=== PATIENT | male | born 1955 | race Caucasian/White ===

== ENCOUNTER → 2017-05-02 | Outpatient (CLI) | payer MEDICARE ==
[~2017-05-02] MED LIST: BENICAR40 MG PO; CARDIZEM CD,CA300 MG PO; CARDIZEM120 MG PO; CLONAZEPAM PO; CLONAZEPAM1 MG PO; COMBIVENT RESPIM4 GM IH; DIVALPROEX SOD500 M1 PO; LEVOFLOXACIN750 MG PO; LOW DOSE ASPIRI81 M1 PO; LYRICA PO; MOTRIN600 MG PO; ROXICODONE5 MG PO; SERTRALINE HCL50 MG PO; SUMATRIPTAN SU100 MG PO; TROKENDI XR50 MG PO; VENLAFAXINE HCL50 MG PO; XARELTO20 MG PO
== END | disposition home or self-care (01) ==
LOC: CDC 15:24
DX: Z01.810 Encounter for preprocedural cardiovascular examination (principal); K40.20 Bilateral inguinal hernia, without obstruction or gangrene, not specified as recurrent; R94.31 Abnormal electrocardiogram [ECG] [EKG]
CPT/HCPCS: 93000

== ENCOUNTER 2017-08-05 19:50 | Emergency (ER) | payer OTHER ==
[~2017-08-05] VITALS: Ht 182.9 cm; Wt 84.1 kg
[~2017-08-05 19:50] MED LIST changes: +ALEVE220 M2 PO; +ANORO ELLIPTA1 EACH IH; +PRILOSEC20 MG PO; +VENTOLIN HFA18 GM IH
[2017-08-05 20:55] LABS: HEMATOCRIT 47.1 % (38.0-50.0); HEMOGLOBIN 16.5 G/DL (12.5-16.6); MCV 91.3 FL (86-99); PLATELET COUNT 232 K/uL (156-360); RBC DIS.WIDTH-SD 43.8 % (39-53); RED BLOOD COUNT 5.16 M/uL (4.00-5.50); WHITE BLOOD COUNT 12.3 K/uL (4.1-10.2)
[2017-08-05 21:19] LABS: CHLORIDE 101 mEq/L (99-109); POTASSIUM 4.3 mEq/L (3.7-5.4); SODIUM 140 mEq/L (136-147)
[2017-08-05 21:21] LABS: GLUCOSE 122 mg/dL (70-99)
[2017-08-05 21:25] LABS: CREATININE 1.3 mg/dL (0.6-1.3); GFR ESTIMATE (CALCULATED) > 59 mL/min/ (58.99-99999); UREA NITROGEN (BUN) 28 mg/dL (9-23)
[2017-08-05 21:27] LABS: TROP-I INTERPRETATION NEGATIVE; TROPONIN-I 0.02 ng/mL (0.0-0.30)
[2017-08-05] MEDS ORDERED: VIBRAMYCIN100 MG PO (23:07)
[2017-08-05 23:13] VITALS: BP 118/79
[2017-08-08] MEDS ORDERED: BENICAR20 MG PO (11:39)
== END 2017-08-05 23:14 | disposition home or self-care (01) ==
LOC: EME 19:50
DX: R10.13 Epigastric pain (principal); R94.31 Abnormal electrocardiogram [ECG] [EKG]; I10 Essential (primary) hypertension; I71.4 Abdominal aortic aneurysm, without rupture; I45.6 Pre-excitation syndrome; F43.10 Post-traumatic stress disorder, unspecified; F17.200 Nicotine dependence, unspecified, uncomplicated; Z86.711 Personal history of pulmonary embolism; Z87.442 Personal history of urinary calculi; Z87.820 Personal history of traumatic brain injury
CPT/HCPCS: 71046; 80048; 84484; 85027; 93005; 99281; 99284

== ENCOUNTER 2017-08-12 06:39 | Day surgery (SDC) | payer OTHER ==
[~2017-08-12] VITALS: Ht 182.9 cm; Wt 83.9 kg
[~2017-08-12 06:39] MED LIST changes: +BENICAR20 MG PO; +VIBRAMYCIN100 MG PO
[2017-08-12 08:32] VITALS: BP 124/73
[2017-08-12] MEDS ORDERED: COLACE100 MG PO (10:59)
[2017-08-12] MEDS ORDERED: PERCOCET 5/31 TABLET PO (10:59)
[2017-08-12 12:25] VITALS: BP 110/61
[2017-08-12 13:30] VITALS: BP 127/68
== END 2017-08-12 14:27 | disposition home or self-care (01) ==
LOC: SDC
PROC: 0YQ64ZZ Repair Left Inguinal Region, Percutaneous Endoscopic Approach (ICD-10-PCS; principal; 2017-08-12)
PROC: 0YU54JZ Supplement Right Inguinal Region with Synthetic Substitute, Percutaneous Endoscopic Approach (ICD-10-PCS; principal; 2017-08-12)
DX: K40.91 Unilateral inguinal hernia, without obstruction or gangrene, recurrent (principal); K40.90 Unilateral inguinal hernia, without obstruction or gangrene, not specified as recurrent; I10 Essential (primary) hypertension; G43.009 Migraine without aura, not intractable, without status migrainosus; J43.9 Emphysema, unspecified; F41.9 Anxiety disorder, unspecified; M19.90 Unspecified osteoarthritis, unspecified site; Z79.82 Long term (current) use of aspirin; F17.200 Nicotine dependence, unspecified, uncomplicated
CPT/HCPCS: 87641; C1727; C1781; J0330; J0690; J1100; J1170; J2250; J2405; J2710; J2795; J3010; J3475; J7643; S0020